=== PATIENT | male | born 1985 | race African-American/Black ===

== ENCOUNTER 2018-08-14 16:12 | Emergency (ER) | payer SELFPAY ==
[~2018-08-14] VITALS: Ht 172.7 cm; Wt 93.0 kg
[~2018-08-14 16:12] MED LIST: IBUPROFEN600 MG ORAL; NKM; PENICILLIN V P500 MG ORAL
[2018-08-14 16:37] VITALS: BP 113/74
--- NOTE | 2018-08-14 16:38 | Emergency Room Report ---
History of Present Illness General Chief Complaint: Skin Rash/Abscess Source: Patient, Medical Record Present Illness HPI 33-year-old male with history of recurrence dental abscess here complaining of new onset of dental abscesses in the right lower third molar.patient further complains of 5 out of 10 mandibular pain however denying decreased range of motion of his mandible and denying tingling or numbness. Denies fever or chills, SOB, palpitations, difficulty swallowing, chest pain, no other associated symptoms. Patient was previously prescribed amoxicillin however does not have any amoxicillin at this time. Patient took ibuprofen for pain and reports some improvement of pain. Patient is a very day he has to follow- up with his dentist and possibly with ENT Allergies: Coded Allergies: No Known Allergies (Unverified , 09/11/15) Patient History Past Medical History: see triage record Past Surgical History: none Pertinent Family History: none Immunizations: UTD Reviewed Nursing Documentation: PMH: Agreed; PSxH: Agreed Nursing Documentation-PMH Hx Asthma: Yes Review of Systems All Other Systems: negative except mentioned in HPI Physical Exam Vital Signs Date Time Temp Pulse Resp B/P (MAP) Pulse Ox O2 Delivery O2 Flow Rate FiO2 08/14/18 16:23 98.4 71 18 113/74 97 Room Air Sp02 EP Interpretation: reviewed, normal General Appearance: normal inspection, well appearing, no apparent distress, GCS 15 Head: normocephalic, atraumatic Eyes: bilateral eye normal inspection, bilateral eye PERRL ENT: hearing grossly normal, normal pharynx, other - swelling and infection of right lower 3rd molar Neck: normal inspection, full range of motion, supple, no bony tend Respiratory: normal inspection, chest non-tender, lungs clear, no rhonchi, no wheezing Cardiovascular #1: normal inspection, regular rate, rhythm, no edema, no murmur Gastrointestinal: normal inspection, non tender, soft Genitourinary: deferred Neurologic: normal inspection, alert, oriented x3 Psychiatric: normal inspection, judgement/insight normal, memory normal Skin: normal inspection, normal color, no rash, warm/dry Lymphatic: normal inspection, no adenopathy Medical Decision Making PA Attestation all diagnoses and treatment plans are reviewed and discussed with my supervising physician Dr. Lackey Diagnostic Impression: Primary Impression: Swelling of mandible Additional Impression: Dental abscess ER Course 33-year-old male with history of recurrence dental abscess here complaining of new onset of dental abscesses in the right lower third molar.patient further complains of 5 out of 10 mandibular pain however denying decreased range of motion of his mandible and denying tingling or numbness. Denies fever or chills, SOB, palpitations, difficulty swallowing, chest pain, no other associated symptoms. Patient was previously prescribed amoxicillin however does not have any amoxicillin at this time. Patient took ibuprofen for pain and reports some improvement of pain. Patient is a very day he has to follow- up with his dentist and possibly with ENT Ddx considered but are not limited to dental abscess, peritonsillar abscess, Vital signs: are WNL, pt. is afebrile H&PE are most consistent with dental abscess ORDERS: Augmentin, naproxen ED INTERVENTIONS: None required at this time. DISCHARGE: At this time pt. is stable for d/c to home. Will provide printed patient care instructions, and any necessary prescriptions. Care plan and follow up instructions have been discussed with the patient prior to discharge. Last Vital Signs Date Time Temp Pulse Resp B/P (MAP) Pulse Ox O2 Delivery O2 Flow Rate FiO2 08/14/18 16:23 98.4 71 18 113/74 97 Room Air Disposition: HOME, SELF-CARE Condition: Stable Scripts Naproxen* (NAPROXEN*) 500 Mg Tablet 500 MG ORAL TWICE A DAY, #20 TAB Prov: Vishnu Puri 08/14/18 Amoxicillin/Potassium Clav 875-125* (AUGMENTIN 875-125 TABLET*) 1 Each Tablet 1 TAB ORAL TWICE A DAY for 10 Days, #20 TAB Prov: Vishnu Puri 08/14/18 Patient Instructions: Dental Abscess, [id number] Additional Instructions: take Ativan excess director, follow-up with primary care provider as well as ear nose throat doctor and dentist Vishnu Puri Aug 14, 2018 16:38
[2018-08-14] MEDS ORDERED: NAPROXEN500 M2 ORAL (16:39)
[2018-08-14] MEDS ORDERED: AUGMENTIN 875-1 EAC1 ORAL (16:39)
[2018-08-14 17:00] VITALS: BP 113/74
== END 2018-08-14 18:40 | disposition home or self-care (01) ==
LOC: EMR 16:40
DX: K04.7 Periapical abscess without sinus (principal); R22.0 Localized swelling, mass and lump, head
CPT/HCPCS: 99283